=== PATIENT | male | born 1980 | race Caucasian/White ===

== ENCOUNTER 2022-05-14 12:17 | Outpatient (REF) | payer MEDICARE, SELFPAY ==
--- NOTE | ~2022-05-14 | CT_ITS ---
EXAMINATION: CT HEAD WITHOUT CONTRAST CLINICAL INFORMATION: REM sleep disorder. COMPARISON: None TECHNIQUE: Contiguous axial imaging was performed from the skull base to vertex without intravenous administration of contrast. This CT examination was performed using dose optimization techniques as appropriate, variously including the following: *Automated exposure control *Adjustment of mA and/or kV according to patient size (this includes techniques or standardized protocols for targeted exams where dose is matched to indication/reason for exam; i.e. extremities or head) *Use of iterative reconstruction technique DLP: 827 mGy-cm FINDINGS: There is no acute intra-axial, extra-axial bleed, masses or midline shift. There is no acute infarction evolution. No edema. The han to white matter differentiation is maintained. The lateral ventricles are symmetrical in size and configuration without enlargement. Bone windows reveal no calvarial abnormality. There is no scalp soft tissue abnormality. Bilateral paranasal sinuses and mastoid air cells are well aerated. CT/CT head/brain wo IV con IMPRESSION: No acute intracranial process seen.
== END 2022-05-14 12:18 | disposition home or self-care (01) ==
LOC: HO.CT 12:17
PROVIDERS: PCP Internal Medicine; Visit Provider Psychiatry & Neurology Neurology
DX: G47.52 REM sleep behavior disorder (principal)
CPT/HCPCS: 70450

== ENCOUNTER → 2022-11-03 13:04 | Outpatient (BNVA) | payer MEDICARE, SELFPAY | PROVIDERS: PCP Internal Medicine; Referring Provider Internal Medicine; Visit Provider Internal Medicine Cardiovascular Disease ==

== ENCOUNTER → 2022-11-17 12:43 | Outpatient (REF) | payer MEDICARE, SELFPAY ==
--- NOTE | 2022-11-17 12:50 | CA_ITS ---
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 Mildly dilated left ventricle with moderately reduced LV systolic function with LVEF of 35-40% with grade 1 diastolic dysfunction 2. Normal cardiac valvular Doppler 3. No gross pericardial effusion Findings Procedure Information Contrast agent, definity, is being given per protocol without apparent complications. Left Ventricle Mildly increased left ventricular cavity size. There is normal left ventricular wall thickness. The left ventricular systolic function is moderately decreased. The visually estimated ejection fraction is between 35 40%. Spectral Doppler is indicative of an impaired relaxation filling pattern. E/E prime ratio is <8, consistent with normal filling pressures. Evidence suggests grade I (mild) diastolic dysfunction. Right Ventricle Normal right ventricular cavity size and systolic function. Atria The left atrium is normal in size. Interatrial shunt cannot be excluded. The right atrium is normal in size. Aortic Valve The aortic valve structure and function is likely normal. There is no aortic valve stenosis. There is no aortic valve regurgitation. Mitral Valve Normal mitral valve structure and function. There is trace mitral valve regurgitation. There is no mitral valve stenosis. Pulmonic Valve The pulmonic valve was not well visualized. Tricuspid Valve Likely normal tricuspid valve structure and function. Tricuspid regurgitation envelope is inadequate for calculation of right ventricular systolic pressure. Normal right atrial pressure. Great Vessels All visible segments of the aorta are normal in size. The pulmonary artery was not well visualized. Venous The inferior vena cava is normal in size and collapses greater than 50% with inspiration. Pericardium/Pleural There is no evidence of pericardial effusion. Prior Study Comparison No prior study available for comparison. Measurements 2D Linear Measurements IVSd: 0.98 0.6-0.9/0.6-1.0 cm LVIDd: 6.17 3.9-5.3/4.2-5.9 cm LVIDd Index: 2.77 2.4-3.2/2.2-3.1 cm/m2 LVIDs: 5.26 2.0-3.6 cm LVPWd: 1.01 0.7-1.1 cm LA Diam: 3.30 2.7-3.8/3.0-4.0 cm LAIDs Index: 1.48 1.5-2.3 cm/m2 LV Mass: 320.17 67-162/88-224 g LV Mass Index: 143.57 43-95/49-115 g/m2 LVOT Diam: 2.30 3.0+(-)1.3 cm 2D Systolic Function EF 4C: 34.30 >55% EF 2C: 34.10 >55% EF BiP: 36.20 >55% Mitral Valve MV Pk E: 0.57 MV PK A: 0.61 MV Decel Time: 156.00 E/A: 0.90 E'Lateral: 8.38 E'Medial: 6.74 E/E' Med: 8.50 E/E' Lat: 6.80 PHT: 46.00 MVA PHT: 4.78 Decel [place]: 3.66 Aortic Valve AoV Pk Mode: 1.06 AoV Mn Mode: 0.79 AoV VTI: 0.21 AoV Pk Grad: 4.00 Aov Mn Grad: 3.00 IVANA Cont.VTI: 2.11 LVOT LVOT Pk Mode: 0.57 LVOT Mn Mode: 0.42 LVOT VTI: 0.10 LVOT Pk Grad: 1.00 LVOT Mn Grad: 1.00 LVOT Diam: 2.30 LVOT Area: 4.15 Diastolic Function MV Pk E: 0.57 MV Pk A: 0.61 E/A: 0.90 E'Medial: 6.74 E/E' Med: 8.50 E' Laterial: 8.38 E/E' Lat: 6.80 Right Ventricle TAPSE (mm): 18.80 TVS' Mode: 11.10 Tricuspid Valve RA Press: 3.00 Great Vessels Aorta Sinus of Valsalva: 3.49 2.0-3.[address] [place]: 2.78 1.7-3.4 cm Ao Asc: 3.10 2.1-3.4 cm Ao Arch: 3.00 Updated in Other Vendor System with Status of Final Hadley Guallpa MD electronically signed on 11/17/2022 2:52:14 PM with status of Final
[2022-11-17 13:50] LABS: Anion Gap 11 (12-20); Blood Urea Nitrogen 10 mg/dL (9-16); Calcium 9.7 mg/dL (8.4-10.2); Carbon Dioxide 29 mmol/L (22-29); Chloride 102 mmol/L (96-108); Estimated Glomerular Filt Rate > 60; Glucose Random 174 mg/dL (60-115); Potassium 4.3 mmol/L (3.3-5.1); Sodium 138 mmol/L (135-145)
[2022-11-17 13:55] LABS: B Type Natriuretic Peptide < 10 pg/mL (<100)
== END ==
LOC: HO.CARD 12:43
PROVIDERS: PCP Internal Medicine; Visit Provider Internal Medicine Cardiovascular Disease
DX: I42.8 Other cardiomyopathies (principal)
CPT/HCPCS: 36415; 80048; 83880; 93306; Q9957

== ENCOUNTER 2022-11-30 10:14 | Outpatient (REF) | payer MEDICARE, SELFPAY ==
--- NOTE | ~2022-11-30 | XR_ITS ---
EXAMINATION: XR SHOULDER, RIGHT CLINICAL INFORMATION: Pain. COMPARISON: None available. TECHNIQUE: AP external rotation, Grashey and axillary views of the right shoulder are submitted. FINDINGS: Bony alignment and mineralization are normal. The glenohumeral joint is intact. There is a tiny accessory ossification center seen at the inferior margin of the glenoid. The acromioclavicular and coracoclavicular intervals are normal. No fracture or dislocation is seen. No soft tissue calcifications or foreign body is seen. There is no right pneumothorax. XR/XR shoulder LT min 2V IMPRESSION: Normal right shoulder. EXAMINATION: XR SHOULDER, LEFT CLINICAL INFORMATION: Pain. COMPARISON: None available. TECHNIQUE: AP external rotation, Grashey and axillary views of the left shoulder are submitted. FINDINGS: The bones and soft tissues are normal. No fracture. Glenohumeral and acromioclavicular alignment is anatomic with normal joint space. No abnormal soft tissue calcifications. IMPRESSION: Normal left shoulder.
--- NOTE | ~2022-11-30 | XR_ITS ---
EXAMINATION: XR SHOULDER, RIGHT CLINICAL INFORMATION: Pain. COMPARISON: None available. TECHNIQUE: AP external rotation, Grashey and axillary views of the right shoulder are submitted. FINDINGS: Bony alignment and mineralization are normal. The glenohumeral joint is intact. There is a tiny accessory ossification center seen at the inferior margin of the glenoid. The acromioclavicular and coracoclavicular intervals are normal. No fracture or dislocation is seen. No soft tissue calcifications or foreign body is seen. There is no right pneumothorax. XR/XR shoulder RT min 2V IMPRESSION: Normal right shoulder. EXAMINATION: XR SHOULDER, LEFT CLINICAL INFORMATION: Pain. COMPARISON: None available. TECHNIQUE: AP external rotation, Grashey and axillary views of the left shoulder are submitted. FINDINGS: The bones and soft tissues are normal. No fracture. Glenohumeral and acromioclavicular alignment is anatomic with normal joint space. No abnormal soft tissue calcifications. IMPRESSION: Normal left shoulder.
== END 2022-11-30 10:15 | disposition home or self-care (01) ==
LOC: HO.HOSX 10:14
PROVIDERS: Visit Provider Physician Assistant
DX: M75.101 Unspecified rotator cuff tear or rupture of right shoulder, not specified as traumatic (principal); M75.102 Unspecified rotator cuff tear or rupture of left shoulder, not specified as traumatic
CPT/HCPCS: 20610; 73030; 99202; J1020

== ENCOUNTER → 2022-12-21 10:45 | Outpatient (BNVA) | payer MEDICARE, MEDICAID, SELFPAY | PROVIDERS: PCP Internal Medicine; Referring Provider Internal Medicine; Visit Provider Surgery | DX: K60.2 Anal fissure, unspecified (principal) | CPT/HCPCS: 99202 ==

== ENCOUNTER → 2022-12-22 09:12 | Outpatient (BNVA) | payer MEDICARE, MEDICAID, SELFPAY | PROVIDERS: PCP Internal Medicine; Referring Provider Internal Medicine; Visit Provider Internal Medicine Cardiovascular Disease | DX: I42.8 Other cardiomyopathies (principal) | CPT/HCPCS: 99212 ==

== ENCOUNTER → 2023-02-23 08:27 | Outpatient (BNVA) | payer MEDICARE, MEDICAID, SELFPAY | PROVIDERS: PCP Internal Medicine; Visit Provider Internal Medicine Endocrinology, Diabetes & Metabolism | DX: E11.9 Type 2 diabetes mellitus without complications (principal); Z79.84 Long term (current) use of oral hypoglycemic drugs | CPT/HCPCS: 82947; 83036; 99202 ==

== ENCOUNTER 2023-04-28 12:04 | Outpatient (AMB) | payer MEDICARE, MEDICAID, SELFPAY ==
[2023-04-28 12:22] VITALS: BP 119/70; PULSE 87; BMI 34.6
--- NOTE | 2023-04-28 12:22 | A.OFFVIS_ITS ---
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 Required: No Accompanied by: Self / Same As Patient Allergies acetaminophen [From Vicodin] Allergy (Unknown, Verified 04/28/23 12:24) Nightmares buprenorphine [From Suboxone] Allergy (Unknown, Verified 04/28/23 12:24) Vomiting cephalexin Allergy (Unknown, Verified 04/28/23 12:24) Vomiting escitalopram [From Lexapro] Allergy (Unknown, Verified 04/28/23 12:24) headaches hydrocodone [From Vicodin] Allergy (Unknown, Verified 04/28/23 12:24) Nightmares ketorolac [From Toradol] Allergy (Unknown, Verified 04/28/23 12:24) Vomiting metformin Allergy (Unknown, Verified 04/28/23 12:24) GI Problems naloxone [From Suboxone] Allergy (Unknown, Verified 04/28/23 12:24) Vomiting pregabalin [From Lyrica] Allergy (Unknown, Verified 04/28/23 12:24) Anxiety shrimp Allergy (Unknown, Verified 04/28/23 12:24) Anaphylaxis tramadol Allergy (Unknown, Verified 04/28/23 12:24) Anxiety Chantix Allergy (Mild, Uncoded 04/28/23 12:24) Anxiety Gabapentin Allergy (Mild, Uncoded 04/28/23 12:24) Anxiety Morphine Allergy (Mild, Uncoded 04/28/23 12:24) Anxiety Neurontin Allergy (Mild, Uncoded 04/28/23 12:24) Anxiety heavy metals Allergy (Unknown, Uncoded 04/28/23 12:24) Rash Medication List - Last Reconciled 04/28/23 by Saima Lewis PA-C blood sugar diagnostic (Accu-Chek Guide test strips) As directed blood-glucose meter (Accu-Chek Guide Me Glucose Meter) As directed carvedilol (Coreg) 12.5 mg PO BID clonazepam 1 mg PO BEDTIME lancets (FreeStyle Lancets) As directed levothyroxine 224 mcg PO DAILY linagliptin (Tradjenta) 5 mg PO QAM metformin 1,000 mg PO BID oxycodone-acetaminophen 10-325 mg 1 tab PO Q6H PRN sacubitril-valsartan 97-103 mg (Entresto) 1 tab PO BID spironolactone 25 mg PO DAILY zolpidem 5 mg PO TID PRN HPI HPI Comments History of Present Illness Details A 42 y/o male acid reflux- omeprazole, Nexium,- for years - no relief Hx colon polyps- just got letter saying due-for colonoscopy last [address] Bee-which time he had anal fissure as well c/o worsening acid reflux Smokes 1/2- 1 pk-he has gained weight Periumbilical pain before BM- resolves immediately after BM He has no nausea, vomiting, hematemesis, hematochezia fever or chills PFSH Medical History Nonischemic cardiomyopathy Type 2 diabetes mellitus Surgical History H/O nephrolithotomy with removal of calculi History of adenoidectomy History of carpal tunnel release History of colonoscopy History of surgery Hx of thyroidectomy Hx of vasectomy S/P cervical disc replacement Family History Father CAD (coronary artery disease) Mother No problems noted. 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 Review of Systems Const All systems reviewed & are unremarkable except as noted in HPI and below Card Denies chest pain and Denies dyspnea Resp Denies dyspnea GI Denies abdominal pain, Reports heartburn, Denies nausea and Denies vomiting Physical Exam Vital Signs: Last Vital Signs Pulse 87 04/28/23 12:22 BP 119/70 04/28/23 12:22 BMI result Body Mass Index 34.6 Const General: healthy appearing and comfortable Nutritional Appearance: overweight Orientation/consciousness: patient oriented x3 Limitations: no limitations Eyes Sclerae: sclerae normal Resp Effort & Inspection: normal respiratory effort and able to speak in complete sentences Auscultation: clear to auscultation bilaterally Cardio Rate: regular rate Rhythm: regular rhythm Heart sounds: S1 normal heart sound present and S2 normal heart sound present GI Palpation (GI): Soft to palpation and nontender Auscultation: normal bowel sounds Skin General skin exam: no rashes or lesions noted Neuro General: patient oriented x3 Extrem General: Yes full ROM Psych Appearance: well kempt Speech and movement: Clear speech present Affect: Indifferent affect present Thought content: Normal thought content present Assessment & Plan Assessment & Plan (1) Acid reflux: Comment: Trials of PPI, however culprits likely cause tobacco and overweight Somewhat guarded Code(s): K21.9 - Gastro-esophageal reflux disease without esophagitis Plan: Avoid culprits Omeprazole 40 mg (2) History of adenomatous polyp of colon: Code(s): Z86.010 - Personal history of colonic polyps Plan: Polyp surveillance colonoscopy Plan EGD and polyp surveillance colonoscopy 1/2 dose insulin theron before- omit metformin-Day of procedures- NO DM meds before MG split prep Orders: Orders EGD/[place] Combo - GI Use Only Today K21.9 - Gastro-esophageal reflux disease without esophagitis, Z86.010 - Personal history of colonic polyps Medications: New bisacodyl (Dulcolax (bisacodyl)) Take 4 tablets by mouth at 12:00pm the day before your procedure. 20 mg (4 x 5 mg) PO ONCE 1 day 4 tabs 0RF colonoscopy prep Z12.11 - Encounter for screening for malignant neoplasm of colon polyethylene glycol 3350 (Miralax) Take as directed by mouth the day before your procedure. 238 grams PO ONCE 1 day PRN 238 grams 0RF laxative effect omeprazole 40 mg (2 x 20 mg) PO DAILY 30 caps 5RF Patient Instructions: 42-year-old male personal history colon polyps as well as persistent acid reflux Discuss lifestyle and dietary changes to include tobacco smoking Polyp surveillance colonoscopy MiraLax Gatorade split prep EGD r/o pud, esophagitis other endoscopic findings to account for symptoms Discussed procedures, rare risks, need for escorted due to anesthesia Encouraged to call questions or concerns Coding Level of Care Code New Pt Level 4 (01298) Diagnoses Acid reflux K21.9 History of adenomatous polyp of colon Z86.010 Time Spent (min) 35
== END 2023-04-28 15:22 | disposition home or self-care (01) ==
PROVIDERS: PCP Internal Medicine; Visit Provider Physician Assistant
DX: K21.9 Gastro-esophageal reflux disease without esophagitis (principal); Z86.010 Personal history of colon polyps
CPT/HCPCS: 99204

== ENCOUNTER → 2023-04-28 12:04 | Outpatient (BNVA) | payer MEDICARE, MEDICAID, SELFPAY | PROVIDERS: PCP Internal Medicine; Visit Provider Physician Assistant | DX: K21.9 Gastro-esophageal reflux disease without esophagitis (principal); Z86.010 Personal history of colon polyps | CPT/HCPCS: 99202 ==

== ENCOUNTER 2023-06-28 09:31 | Outpatient (AMB) | payer MEDICARE, MEDICAID, SELFPAY ==
[2023-06-28 09:35] VITALS: BP 110/66; PULSE 95; BMI 34.8
--- NOTE | 2023-06-28 09:35 | A.OFFVIS_ITS ---
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: No Allergies acetaminophen [From Vicodin] Allergy (Unknown, Verified 04/28/23 12:24) Nightmares buprenorphine [From Suboxone] Allergy (Unknown, Verified 04/28/23 12:24) Vomiting cephalexin Allergy (Unknown, Verified 04/28/23 12:24) Vomiting escitalopram [From Lexapro] Allergy (Unknown, Verified 04/28/23 12:24) headaches hydrocodone [From Vicodin] Allergy (Unknown, Verified 04/28/23 12:24) Nightmares ketorolac [From Toradol] Allergy (Unknown, Verified 04/28/23 12:24) Vomiting metformin Allergy (Unknown, Verified 04/28/23 12:24) GI Problems naloxone [From Suboxone] Allergy (Unknown, Verified 04/28/23 12:24) Vomiting pregabalin [From Lyrica] Allergy (Unknown, Verified 04/28/23 12:24) Anxiety shrimp Allergy (Unknown, Verified 04/28/23 12:24) Anaphylaxis tramadol Allergy (Unknown, Verified 04/28/23 12:24) Anxiety Chantix Allergy (Mild, Uncoded 04/28/23 12:24) Anxiety Gabapentin Allergy (Mild, Uncoded 04/28/23 12:24) Anxiety Morphine Allergy (Mild, Uncoded 04/28/23 12:24) Anxiety Neurontin Allergy (Mild, Uncoded 04/28/23 12:24) Anxiety heavy metals Allergy (Unknown, Uncoded 04/28/23 12:24) Rash Medication List - Last Reconciled 06/28/23 by Hadley Guallpa MD blood sugar diagnostic (Accu-Chek Guide test strips) As directed blood-glucose meter (Accu-Chek Guide Me Glucose Meter) As directed carvedilol (Coreg) 12.5 mg PO BID clonazepam 1 mg PO BEDTIME lancets (FreeStyle Lancets) As directed levothyroxine 112 mcg PO DAILY linagliptin (Tradjenta) 5 mg PO QAM metformin 1,000 mg PO BID omeprazole 40 mg (2 x 20 mg) PO DAILY oxycodone-acetaminophen 10-325 mg 1 tab PO Q6H PRN sacubitril-valsartan 97-103 mg (Entresto) 1 tab PO BID spironolactone 25 mg PO DAILY zolpidem 5 mg PO TID PRN HPI HPI Comments History of Present Illness Details Martín comes for follow-up. No heart failure symptoms. Denies any lightheadedness, syncope. No worsening shortness of breath. He complains of burning discomfort in the legs precordial area that happens at any time and last for 1-5 minutes. This is not exertional in nature. Denies any prolonged palpitation irregular heartbeat. Taking all his medications religiously. Has about 800 mg of caffeine every day, he said this his needed for his job. [facility] Medical History Type 2 diabetes mellitus Nonischemic cardiomyopathy Surgical History History of colonoscopy Hx of vasectomy History of surgery History of adenoidectomy History of carpal tunnel release Hx of thyroidectomy S/P cervical disc replacement H/O nephrolithotomy with removal of calculi Family History Father CAD (coronary artery disease) Mother No problems noted. 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 Review of Systems Const Denies chills, Denies fatigue, Denies fever(s), Denies frequent falls, Denies weakness, Denies weight gain and Denies weight loss ENT Denies dizziness Card Denies chest pain, Denies leg edema, Denies lightheadedness, Denies palpitations, Denies dyspnea, Denies dyspnea on exertion, Denies orthopnea and Denies other (loss of consciousness) Resp Denies cough, Denies dyspnea and Denies dyspnea on exertion GI Denies hematochezia and Denies change in stool character Musc Denies abnormal gait, Denies muscle weakness, Denies numbness, Denies radiating pain into limb and Denies tingling Neuro Denies abnormal gait, Denies dizziness, Denies frequent falls, Denies numbness, Denies tingling and Denies weakness Endo Denies fatigue and Denies palpitations Physical Exam Vital Signs: Last Vital Signs Pulse 95 06/28/23 09:35 BP 110/66 06/28/23 09:35 BMI result Body Mass Index 34.8 Const General: cooperative, comfortable, no acute distress, alert, awake and Physically active Nutritional Appearance: obese Orientation/consciousness: patient oriented x3 Limitations: no limitations Neck Neck: Yes trachea midline, Yes supple and Yes no JVD Resp Effort & Inspection: normal respiratory effort Auscultation: clear to auscultation bilaterally Cardio Jugular venous distension: no JVD Palpation: abnormal PMI displaced PMI Rate: regular rate Rhythm: regular rhythm Heart sounds: S1 normal heart sound present, S2 normal heart sound present, no click, no gallops, no murmurs and no rubs Neuro General: patient oriented x3 and no focal motor deficits Extrem General: Yes no clubbing, cyanosis or edema Psych Appearance: grossly normal Office Procedures EKG Details: EKG shows normal sinus rhythm with poor R-wave progression, most likely due to body habitus [id number], Complete Assessment & Plan Assessment & Plan (1) Nonischemic cardiomyopathy: Code(s): I42.8 - Other cardiomyopathies Plan: Nonischemic cardiomyopathy with moderate LV systolic dysfunction without signs or symptoms of heart failure. NYHA class 1. Continue aggressive neurohormonal modulation. Currently on full dose Entresto. Will further maximize carvedilol to 25 mg b.i.d.. Advised to monitor blood pressure at home maintain a log. Try to obtain target heart rate between 60 and 80 beats per minute. Continue spironolactone therapy. Semi annual renal function test should be pursued. Signs and symptoms of heart failure were discussed. Continue to maximize is heart healthy lifestyle with aggressive weight loss program as well as regular physical activity. Will follow up in the clinic 6 months time after an echocardiogram. Thank you for allowing me to partake in his care Orders: Orders CA echo transthoracic complete 6 Months I42.8 - Other cardiomyopathies Medications: New carvedilol (Coreg) must administer with a meal/food 25 mg PO BID 60 tabs 5RF I42.8 - Other cardiomyopathies Discontinued carvedilol (Coreg) must administer with a meal/food Discontinued Reason: Doctor's Order 12.5 mg PO BID 60 tabs 5RF I42.8 - Other cardiomyopathies Coding Level of Care Code Est Pt Level 4 (67555) Diagnoses Nonischemic cardiomyopathy I42.8 CPT Codes EKG - CPT: 83132-[id number], Complete ([id number])
== END 2023-06-28 10:04 | disposition home or self-care (01) ==
PROVIDERS: Visit Provider Internal Medicine Cardiovascular Disease
DX: I42.8 Other cardiomyopathies (principal)
CPT/HCPCS: 93010; 99214

== ENCOUNTER → 2023-06-28 09:31 | Outpatient (BNVA) | payer MEDICARE, SELFPAY | PROVIDERS: Visit Provider Internal Medicine Cardiovascular Disease | DX: I42.8 Other cardiomyopathies (principal) | CPT/HCPCS: 93005; 99212 ==

== ENCOUNTER 2023-07-12 08:59 | Outpatient (AMB) | payer MEDICARE, MEDICAID, SELFPAY ==
[2023-07-12 09:03] VITALS: BMI 34.7
--- NOTE | 2023-07-12 09:03 | A.OFFVIS_ITS ---
Intake Vital Signs 07/12/23 09:03 Height 5 ft 9 in Weight 235 lb BMI 34.7 Intake Visit Reasons: New Prob- B/L Elbow pain Intake Note: Martín is a 42 year old right hand dominant male who presents today for a evaluation for his bilateral elbow pain. Patient reports having off and on pain for 3 years and it been getting worse. Hx of injection with a couple months of relief. Hx of PT with no relief. He states that his right elbow is worse that the left. Allergies acetaminophen [From Vicodin] Allergy (Unknown, Verified 07/12/23 09:04) Nightmares buprenorphine [From Suboxone] Allergy (Unknown, Verified 07/12/23 09:04) Vomiting cephalexin Allergy (Unknown, Verified 07/12/23 09:04) Vomiting escitalopram [From Lexapro] Allergy (Unknown, Verified 07/12/23 09:04) headaches hydrocodone [From Vicodin] Allergy (Unknown, Verified 07/12/23 09:04) Nightmares ketorolac [From Toradol] Allergy (Unknown, Verified 07/12/23 09:04) Vomiting metformin Allergy (Unknown, Verified 07/12/23 09:04) GI Problems naloxone [From Suboxone] Allergy (Unknown, Verified 07/12/23 09:04) Vomiting pregabalin [From Lyrica] Allergy (Unknown, Verified 07/12/23 09:04) Anxiety shrimp Allergy (Unknown, Verified 07/12/23 09:04) Anaphylaxis tramadol Allergy (Unknown, Verified 07/12/23 09:04) Anxiety Chantix Allergy (Mild, Uncoded 04/28/23 12:24) Anxiety Gabapentin Allergy (Mild, Uncoded 04/28/23 12:24) Anxiety Morphine Allergy (Mild, Uncoded 04/28/23 12:24) Anxiety Neurontin Allergy (Mild, Uncoded 04/28/23 12:24) Anxiety heavy metals Allergy (Unknown, Uncoded 04/28/23 12:24) Rash HPI New Prob- B/L Elbow pain HPI Details 43-year-old right hand dominant male who presents in the office today for an evaluation of bilateral elbow pain. The patient reports intermittent pain for 3 years, since 2019. He states the pain has increased. He claims the right elbow is worse then the left elbow. He confirms a history of cortisone injections with months of relief. He also confirms a history of physical therapy with no relief. The patient reports he has had more then 5 cortisone injections in the bilateral elbows. He denies any PRP injections. He also reports having 5 ?disc repl acement? surgery in the neck. FOR[facility]LY [facility] Medical History Type 2 diabetes mellitus Nonischemic cardiomyopathy Surgical History History of colonoscopy Hx of vasectomy History of surgery History of adenoidectomy History of carpal tunnel release Hx of thyroidectomy S/P cervical disc replacement H/O nephrolithotomy with removal of calculi Family History Father CAD (coronary artery disease) Mother No problems noted. 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 No ecchymosis, erythema, or edema. No tenderness to palpation over the olecranon. No tenderness to the lateral epicondyle. Right elbow tenderness to palpation medial epicondyle and left elbow mild tenderness to palpation medial epicondyle. NVI. Office Procedures Joint Injection/Drain Joint Injection/Drain Primary Site: right tennis elbow Prep: site was prepped using aseptic technique, ethochloride spray was applied and injection warnings given Injected: 40 mg of, DepoMedrol, with 1 mL of (2% plain lido ) and other (medial epicondyle) Procedure: The patient tolerated the procedure well, but had some pain with the injection and there was some relief with the local anesthesia Coding 53531 - Epicondyle Procedure code (CPT) selection complete Results Reviewed Results Reviewed: 07/12/23 09:16 Lidocaine HCl 1 % [Xylocaine 1 %] 2 ml .ROUTE .STK-MED ONE methylPREDNISolone acetate [DEPO-MedroL] 40 mg .ROUTE .STK-MED ONE Assessment & Plan Assessment & Plan (1) Medial epicondylitis of right elbow: Code(s): M77.01 - Medial epicondylitis, right elbow (2) Medial epicondylitis of left elbow: Code(s): M77.02 - Medial epicondylitis, left elbow (3) Diabetes mellitus: Code(s): E11.9 - Type 2 diabetes mellitus without complications Plan Mr. Del Valle is a 43-year-old right hand dominant male who presents in the office today for an evaluation of bilateral elbow pain. The patient reports intermittent pain for 3 years, since 2019. He states the pain has increased. He claims the right elbow is worse then the left elbow. He confirms a history of cortisone injections with months of relief. He also confirms a history of physical therapy with no relief. The patient reports he has had more then 5 cortisone injections in the bilateral elbows. He denies any PRP injections. He also reports having 5 ?disc replacement? surgery in the neck. The patient was offered a cortisone injection in the right elbow with 40 mg of DepoMedrol. The patient was explained the risk, benefits, and alternatives to receiving this injection. After receiving consent for the injection, the patient had the procedure done while in office today. The patient tolerated the procedure well with no complications. Due to the patient?s history of diabetes, they were instructed to monitor his blood glucose level. The patient was informed that they could see a rise in their numbers and if the numbers became too high, they were instructed to call their PCP. The patient was also informed that they could have facial flushing as a side effect of the injection but this will pass. Follow up will be PRN, or sooner if needed. Patient Instructions: Scribed for Kelly Davidson PA-C by Sivan Espinoza medical staffing coordinator, on 07/12/2023 at 9:02 am, EST. Coding Level of Care Code Est Pt Level 4 (49222) Diagnoses Medial epicondylitis of right elbow M77.01 Medial epicondylitis of left elbow M77.02 Diabetes mellitus E11.9 CPT Codes Coding - Joint 2: 56729 - Epicondyle ([id number])
== END 2023-07-12 09:47 | disposition home or self-care (01) ==
PROVIDERS: PCP Internal Medicine; Visit Provider Physician Assistant
DX: M77.01 Medial epicondylitis, right elbow (principal); M77.02 Medial epicondylitis, left elbow
CPT/HCPCS: 20550; 99214

== ENCOUNTER → 2023-07-12 08:59 | Outpatient (BNVA) | payer MEDICARE, MEDICAID, SELFPAY | PROVIDERS: PCP Internal Medicine; Visit Provider Physician Assistant | DX: M77.01 Medial epicondylitis, right elbow (principal); M77.02 Medial epicondylitis, left elbow; E11.9 Type 2 diabetes mellitus without complications | CPT/HCPCS: 20550; 99212; J1020 ==

== ENCOUNTER 2023-08-09 09:40 | Outpatient (REF) | payer MEDICARE, SELFPAY ==
[2023-08-09 12:10] LABS: B Type Natriuretic Peptide < 10 pg/mL (<100)
[2023-08-09 12:20] LABS: Anion Gap 10 (12-20); Blood Urea Nitrogen 14 mg/dL (9-16); Calcium 9.1 mg/dL (8.4-10.2); Carbon Dioxide 27 mmol/L (22-29); Chloride 105 mmol/L (96-108); Estimated Glomerular Filt Rate > 60; Glucose Random 143 mg/dL (60-115); Potassium 4.3 mmol/L (3.3-5.1); Sodium 138 mmol/L (135-145)
[2023-08-09 12:39] LABS: TSH reflex Free T4 29.39 uIU/mL (0.32-4.0)
[2023-08-09 13:12] LABS: Free T4 (Free Thyroxine) 0.69 ng/dL (0.71-1.85)
== END 2023-08-09 09:41 | disposition home or self-care (01) ==
LOC: HO.LAB 09:40
PROVIDERS: PCP Internal Medicine; Visit Provider Internal Medicine Cardiovascular Disease
DX: I42.8 Other cardiomyopathies (principal); R63.5 Abnormal weight gain
CPT/HCPCS: 36415; 80048; 83880; 84439; 84443

== ENCOUNTER 2023-10-11 08:31 | Outpatient (REF) | payer MEDICARE, SELFPAY | END 2023-10-11 08:32 | disposition home or self-care (01) | LOC: HO.HOSX 08:31 | PROVIDERS: Visit Provider Physician Assistant | DX: Z13.89 Encounter for screening for other disorder (principal) ==

== ENCOUNTER 2023-10-24 08:14 | Day surgery (SDC) | payer MEDICARE, SELFPAY ==
--- NOTE | 2023-10-21 11:46 | HO.ANESPROP2 ---
Documented by User: Columba Mills NP 10/21/23 11:55 HPI - Anesthesia Eval Consult details Narrative: 43yo M for Upper Endoscopy and Colonoscopy Follows [facility] cardiology for NICMP. Last office visit 05/2023. On entresto. Anesthesia Pre-Procedure Meds Is the patient on any of the following meds?: Any other SGL-1 drugs or drugs that delay gastric emptying (Linigliptin) PMFSH Active Problems Active Problems: All Active Problems (Updated 07/12/23 @ 09:27 by Sivan Espinoza) Diabetes mellitus (Acute) Medial epicondylitis of left elbow (Acute) Medial epicondylitis of right elbow (Acute) History of adenomatous polyp of colon (Acute) Acid reflux (Acute) Type 2 diabetes mellitus (Acute) Anal fissure (Acute) Painful arc syndrome of left shoulder (Acute) Painful arc syndrome of right shoulder (Acute) Nonischemic cardiomyopathy (Acute) Past Medical History Medical History Type 2 diabetes mellitus Nonischemic cardiomyopathy Family History Family History Father CAD (coronary artery disease) Mother No problems noted. Maternal Aunt CAD (coronary artery disease) Surgical History Surgical History History of colonoscopy Hx of vasectomy History of surgery History of adenoidectomy History of carpal tunnel release Hx of thyroidectomy S/P cervical disc replacement H/O nephrolithotomy with removal of calculi Social History Social History Alcohol intake: current Alcohol intake frequency: holidays/special occasions only Patient Tobacco Use Status: Current everyday Tobacco user Tobacco use type: Cigarette Cigarette Packs Per Day: 1 Date Education Initiated: 10/24/23 Use of substances other than those prescribed or required for medical reasons: No Are you DNR?: No Advance Directives: No Advance Directives Information Provided: Yes Current occupational status: employed 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 Allergies Allergy/AdvReac Type Severity Reaction Status Date / Time acetaminophen [From Vicodin] Allergy Unknown Nightmares Verified 07/12/23 09:04 buprenorphine [From Suboxone] Allergy Unknown Vomiting Verified 07/12/23 09:04 cephalexin Allergy Unknown Vomiting Verified 07/12/23 09:04 escitalopram [From Lexapro] Allergy Unknown headaches Verified 07/12/23 09:04 hydrocodone [From Vicodin] Allergy Unknown Nightmares Verified 07/12/23 09:04 ketorolac [From Toradol] Allergy Unknown Vomiting Verified 07/12/23 09:04 metformin Allergy Unknown GI Problems Verified 07/12/23 09:04 naloxone [From Suboxone] Allergy Unknown Vomiting Verified 07/12/23 09:04 pregabalin [From Lyrica] Allergy Unknown Anxiety Verified 07/12/23 09:04 shrimp Allergy Unknown Anaphylaxis Verified 07/12/23 09:04 tramadol Allergy Unknown Anxiety Verified 07/12/23 09:04 Chantix Allergy Mild Anxiety Uncoded 04/28/23 12:24 Gabapentin Allergy Mild Anxiety Uncoded 04/28/23 12:24 Morphine Allergy Mild Anxiety Uncoded 04/28/23 12:24 Neurontin Allergy Mild Anxiety Uncoded 04/28/23 12:24 heavy metals Allergy Unknown Rash Uncoded 04/28/23 12:24 Home Medications Medication Instructions Recorded Confirmed Last Taken Type oxycodone-acetaminophen 10 mg-325 1 tab PO Q6H PRN paain 11/03/22 10/24/23 Unknown History mg tablet zolpidem 5 mg tablet 5 mg PO TID PRN Insomnia 11/03/22 10/24/23 Unknown History metformin 1,000 mg tablet 1,000 mg PO BID 12/22/22 10/24/23 Unknown History blood sugar diagnostic (Accu-Chek #10 ea 02/23/23 Unknown History Guide test strips) blood-glucose meter (Accu-Chek #1 ea 02/23/23 Unknown History Guide Me Glucose Meter) lancets 28 gauge (FreeStyle #100 ea 02/23/23 Unknown History Lancets) levothyroxine 112 mcg tablet 112 mcg PO DAILY 06/28/23 10/24/23 Unknown History Exam Pertinent Lab Results Pertinent Lab Results: Laboratory Tests 08/09/23 09:55 Sodium 138 Potassium 4.3 Chloride 105 Carbon Dioxide 27 BUN 14 Creatinine 0.94 Narrative Narrative: EKG 05/2023 normal sinus rhythm with poor R-wave progression, most likely due to body habitus ECHO 2022 Conclusions: - 1. Mildly dilated left ventricle with moderately reduced LV systolic function with LVEF of 35-40% with grade 1 diastolic dysfunction 2. Normal cardiac valvular Doppler 3. No gross pericardial effusion Assessment and Plan Assessment Anesthesia Assessment: Chart Reviewed Documented by User: Gena Jewell MD 10/24/23 09:37 HPI - Anesthesia Eval Anesthesia Pre-Procedure Meds If Yes to any meds - educate patient: Pt education - increased risk of aspiration and Pt education - possibility of cancelled proc at provider's discretion PMFSH Past Medical History Medical History Type 2 diabetes mellitus Nonischemic cardiomyopathy Family History Family History Father CAD (coronary artery disease) Mother No problems noted. Maternal Aunt CAD (coronary artery disease) Family history of problems with anesthesia: No Surgical History Surgical History History of colonoscopy Hx of vasectomy History of surgery History of adenoidectomy History of carpal tunnel release Hx of thyroidectomy S/P cervical disc replacement H/O nephrolithotomy with removal of calculi History of Problems with Anesthesia: No Social History Social History Alcohol intake: current Alcohol intake frequency: holidays/special occasions only Patient Tobacco Use Status: Current everyday Tobacco user Tobacco use type: Cigarette Cigarette Packs Per Day: 1 Date Education Initiated: 10/24/23 Use of substances other than those prescribed or required for medical reasons: No Are you DNR?: No Advance Directives: No Advance Directives Information Provided: Yes Current occupational status: employed 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 Allergies Allergy/AdvReac Type Severity Reaction Status Date / Time acetaminophen [From Vicodin] Allergy Unknown Nightmares Verified 07/12/23 09:04 buprenorphine [From Suboxone] Allergy Unknown Vomiting Verified 07/12/23 09:04 cephalexin Allergy Unknown Vomiting Verified 07/12/23 09:04 escitalopram [From Lexapro] Allergy Unknown headaches Verified 07/12/23 09:04 hydrocodone [From Vicodin] Allergy Unknown Nightmares Verified 07/12/23 09:04 ketorolac [From Toradol] Allergy Unknown Vomiting Verified 07/12/23 09:04 metformin Allergy Unknown GI Problems Verified 07/12/23 09:04 naloxone [From Suboxone] Allergy Unknown Vomiting Verified 07/12/23 09:04 pregabalin [From Lyrica] Allergy Unknown Anxiety Verified 07/12/23 09:04 shrimp Allergy Unknown Anaphylaxis Verified 07/12/23 09:04 tramadol Allergy Unknown Anxiety Verified 07/12/23 09:04 Chantix Allergy Mild Anxiety Uncoded 04/28/23 12:24 Gabapentin Allergy Mild Anxiety Uncoded 04/28/23 12:24 Morphine Allergy Mild Anxiety Uncoded 04/28/23 12:24 Neurontin Allergy Mild Anxiety Uncoded 04/28/23 12:24 heavy metals Allergy Unknown Rash Uncoded 04/28/23 12:24 Home Medications Medication Instructions Recorded Confirmed Last Taken Type oxycodone-acetaminophen 10 mg-325 1 tab PO Q6H PRN paain 11/03/22 10/24/23 Unknown History mg tablet zolpidem 5 mg tablet 5 mg PO TID PRN Insomnia 11/03/22 10/24/23 Unknown History metformin 1,000 mg tablet 1,000 mg PO BID 12/22/22 10/24/23 Unknown History blood sugar diagnostic (Accu-Chek #10 ea 02/23/23 Unknown History Guide test strips) blood-glucose meter (Accu-Chek #1 ea 02/23/23 Unknown History Guide Me Glucose Meter) lancets 28 gauge (FreeStyle #100 02/23/23 Unknown History Lancets) levothyroxine 112 mcg tablet 112 mcg PO DAILY 06/28/23 10/24/23 Unknown History Exam Airway Mallampati Class: III TM Dist: >3cm Neck ROM: Full Heart: rrr Lungs: cta Assessment and Plan Assessment Anesthesia Assessment: Anesthesia Plan Discussed Final Anesthetic Review Family History of Problems with Anesthesia: No History of Problems with Anesthesia: No NPO: Yes ASA Class: III Final Preanesthetic Review: No Changes in Pt Med Stat, Meds/Allgs Chart Reviewed and Consent Obtained/Reviewed Patient Risk: Intermediate Procedure Risk: Intermediate Anesthetic Plan Anesthetic Plan: MAC: Disposition: Standard PACU
[2023-10-24 08:59] VITALS: BP 129/83; PULSE 95; RESP 18; TEMP 36.3; O2SAT 96; BMI 36.3
[2023-10-24 09:00] LABS: Glucose, Whole Blood 171 mg/dL (60-115)
[2023-10-24 09:08] VITALS: BMI 36.3
--- NOTE | 2023-10-24 09:21 | PC.NURSE ---
pt denies chest pain, sob, dizziness with activity of going up and down stairs with food. tele strip nsr first degree avb with occas to freq isolated pvc. dr. barraza aware.
[2023-10-24] MEDS: Lactated Ringers 1,000 ML 100 ML IVCONT (09:24)
--- NOTE | 2023-10-24 09:26 | MHC.SHP ---
Pre-Procedural Eval Section A - 24 Hr Update-Section A only Date of Service: 10/24/23 The patient is an INPATIENT: No The patient has been examined within 24 hours of the surgical procedure. The History & Physical has been completed within 30 days and I have reviewed it.: No Section B - Complete if H&P > 30 days Chief Complaint: Surveillance for colon polyps, GERD Relevant Family History (Specify if Yes): No Relevant Social History: Tobacco Use Present Medications: see Short Stay Collaborative assessment Medical History: Significant History (Nonischemic cardiomyopathy Type 2 diabetes mellitus) History of Previous Operations: Relevant previous surgery/procedure and date(s) (H/O nephrolithotomy with removal of calculi History of adenoidectomy History of carpal tunnel release History of colonoscopy History of surgery Hx of thyroidectomy Hx of vasectomy S/P cervical disc replacement) Allergies: Allergies Allergy/AdvReac Type Severity Reaction Status Date / Time acetaminophen [From Vicodin] Allergy Unknown Nightmares Verified 07/12/23 09:04 buprenorphine [From Suboxone] Allergy Unknown Vomiting Verified 07/12/23 09:04 cephalexin Allergy Unknown Vomiting Verified 07/12/23 09:04 escitalopram [From Lexapro] Allergy Unknown headaches Verified 07/12/23 09:04 hydrocodone [From Vicodin] Allergy Unknown Nightmares Verified 07/12/23 09:04 ketorolac [From Toradol] Allergy Unknown Vomiting Verified 07/12/23 09:04 metformin Allergy Unknown GI Problems Verified 07/12/23 09:04 naloxone [From Suboxone] Allergy Unknown Vomiting Verified 07/12/23 09:04 pregabalin [From Lyrica] Allergy Unknown Anxiety Verified 07/12/23 09:04 shrimp Allergy Unknown Anaphylaxis Verified 07/12/23 09:04 tramadol Allergy Unknown Anxiety Verified 07/12/23 09:04 Chantix Allergy Mild Anxiety Uncoded 04/28/23 12:24 Gabapentin Allergy Mild Anxiety Uncoded 04/28/23 12:24 Morphine Allergy Mild Anxiety Uncoded 04/28/23 12:24 Neurontin Allergy Mild Anxiety Uncoded 04/28/23 12:24 heavy metals Allergy Unknown Rash Uncoded 04/28/23 12:24 Review of Systems Sugical H&P ROS: Negative: Constitution, Cardiovascular, Respiratory and Gastrointestinal Exam Surgical H&P Exam: Normal: Heart, Normal: Lungs, Normal: Extremities and Normal: Abdomen Plan Diagnosis/Plan: Unchanged I have reviewed the history and physical and performed a pertinent physical examination on my patient. No changes have occurred unless specified. Time Spent With Patient Time: Total time managing care of this patient today ____ minutes.
--- NOTE | 2023-10-24 10:15 | W.PM.OPN ---
Operative Note Operative Note Date of Service: 10/24/23 Narrative: FLEXIBLE TRANSORAL UPPER GASTROINTESTINAL ENDOSCOPY WITH BIOPSIES AND COLONOSCOPY TILL CECUM WITH SNARE POLYPECTOMY, SUBMUCOSAL INJECTION AND HEMOCLIP PLACEMENT Pre-op diagnosis: Surveillance for colon polyps, GERD Post-op diagnosis: Gastric Polyps, GERD, Gastritis Multiple colon polyps, diverticulosis, hemorrhoids? Endoscopist:? Kenny Payne MD Anesthesia:?MAC Consent: Indications for the procedure and potential complications of bleeding, perforation, reaction to medications and missed diagnosis were discussed with the patient and informed consent was obtained. Monitoring: Vital signs and clinical assessment, intermittent blood pressure monitoring, continuous EKG monitoring, Pulse oximetry and Carbon Dioxide monitoring were done throughout the procedure. COLONOSCOPY PROCEDURE NOTE Instrument: Olympus CF H 190 L variable stiffness adult colonoscope Colon withdrawl time was 43 minutes. Procedure: The patient was placed in the left lateral decubitis position and pre-procedure medications were administered. After a digital rectal examination of the ano-rectum, the video colonoscope was inserted into the rectum and advanced through the colon to the cecum. The colonoscope was slowly withdrawn in a retrograde panoramic fashion and the colon mucosa was carefully examined including a retroflexed view of the rectum. Findings and interventions are described below. Procedure Difficulty: Without difficulty Findings: Terminal Ileum: Not evaluated Cecum: A 9-10 mm sessile polyp - removed with a hot snare Ascending Colon: Normal Transverse Colon: Six 8 to 12 mm sessile polyps - removed with a hot snare Descending Colon: Moderate diverticulosis Sigmoid Colon: A 1.5 to 1.8 cms sessile polyp at 40 cms - removed with a hot snare. Polypectomy site was closed with one hemoclip. A 2.5 cms bilobed pedunculated polyp - removed with a hot snare. Polypectomy site was closed with 2 hemoclips and marked by Shwetha ink. Moderate diverticulosis Rectum: Normal Ano-rectum: Moderate internal hemorrhoids Colon preparation: Good after copious irrigation and Fair in the cecum with undigested vegetable matter which could not be suctioned UPPER ENDOSCOPY Instrument: Olympus GIF H 190 mid size upper endoscope Procedure: The patient was placed in the left lateral decubitis position and pre-procedure medications were administered and a bite block was placed. The endoscope was inserted into the mouth and advanced under direct vision to the third part of duodenum. A careful inspection was made as the upper endoscope was withdrawn including a retroflexed examination of the proximal stomach; Findings and interventions are described below. Findings: Larynx: Normal Esophagus: GE junction at 40 cms. A 1 cms tongue of suspected May's - biopsied. LA grade 1 esophagitis with focal erosion at GE junction.. Stomach: Multiple 8 to 12 mm benign appearing polyps in the gastric body and antrum. Antral polyp was biopsied. Mild gastric erythema. Antral biopsies were obtained to check for Helicobacter pylori. Grade 2 flap valve on retroflexed examination of the cardia. Duodenum: Normal bulb and descending duodenum Intervention: Biopsies as noted above Impression and Post Procedure Diagnosis: Colonoscopy Findings: Seven small to medium sized and two large polyps removed Multiple 8 to 12 mm sessile polyps throughout the entire colon - not removed due to excessive length of the procedure Moderate diverticulosis seen in the left colon Moderate hemorrhoids on retroflexed exam. Endoscopy Findings: ESOPHAGUS: A 1 cms tongue of suspected May's - biopsied. LA grade 1 esophagitis with focal erosion at GE junction.. STOMACH: Multiple 8 to 12 mm benign appearing polyps in the gastric body and antrum. Antral polyp was biopsied. Mild gastric erythema. Antral biopsies were obtained to check for Helicobacter pylori. Plan: Patient has an appointment on 11/07/23 in the GI Clinic with PRINCE Weiss. Repeat Colonoscopy interval based on path results - in 6 months if polyps are adenomatous and for removal of remaining polyps (Needs 90 min appt and adult colonoscope for next colonoscopy). Above findings were reviewed with the patient and colon polyps and diverticulosis handouts were given in the discharge area BIOPSIES SHOWED: A. Colon, cecal polyp: Inflammatory polyp; negative for adenomatous dysplasia. B. Colon, transverse, polyps: Inflammatory polyps; negative for adenomatous dysplasia. C. Colon, sigmoid at 40 cm, polyp: Inflammatory polyp with reactive mucosal changes; negative for adenomatous dysplasia. D. Colon, sigmoid at 35 cm, polyp: Tubulovillous adenoma, likely excised; negative for high-grade dysplasia and carcinoma. E. Gastric antrum, biopsy: Gastric antral mucosa with congestion and minimal chronic inactive gastritis; negative for H pylori, intestinal metaplasia and dysplasia. F. Gastric polyp, biopsy: Polypoid gastric antral mucosa with congestion and focal minimal chronic inactive inflammation; negative for H pylori, intestinal metaplasia and dysplasia. G. Gastroesophageal junction, biopsy: Columnar mucosa with congestion and minimal chronic inactive inflammation; negative for intestinal metaplasia and dysplasia; no squamous mucosa present. Comment: (B and C): Focal lamina propria ganglion cells are noted, consistent with mucosal damage
[2023-10-24 11:40] VITALS: BP 125/93; PULSE 104; RESP 16; TEMP 36.3; O2SAT 97
[2023-10-24 11:55] VITALS: BP 115/78; PULSE 86; RESP 16; O2SAT 97
[2023-10-24 12:11] VITALS: BP 126/72; PULSE 93; RESP 18; TEMP 36.3; O2SAT 99
== END 2023-10-24 12:48 | disposition home or self-care (01) ==
PROVIDERS: PCP Internal Medicine; Visit Provider Internal Medicine Gastroenterology
PROC: (CPT 45385; principal; 2023-10-24 10:20)
DX: Z12.11 Encounter for screening for malignant neoplasm of colon (principal); Z86.010 Personal history of colon polyps; D12.5 Benign neoplasm of sigmoid colon; K51.40 Inflammatory polyps of colon without complications; K57.30 Diverticulosis of large intestine without perforation or abscess without bleeding; K64.8 Other hemorrhoids; K21.9 Gastro-esophageal reflux disease without esophagitis; K20.80 Other esophagitis without bleeding; K29.50 Unspecified chronic gastritis without bleeding; K31.7 Polyp of stomach and duodenum; I42.8 Other cardiomyopathies; E11.9 Type 2 diabetes mellitus without complications; Z88.8 Allergy status to other drugs, medicaments and biological substances; Z79.899 Other long term (current) drug therapy; Z79.84 Long term (current) use of oral hypoglycemic drugs; Z88.5 Allergy status to narcotic agent; Z87.442 Personal history of urinary calculi; Z98.52 Vasectomy status; Z98.890 Other specified postprocedural states; F17.210 Nicotine dependence, cigarettes, uncomplicated
CPT/HCPCS: 45385; 45381; 43239; 82947; 88305; 88313; 88342; J2250; J2704

== ENCOUNTER → 2023-10-24 08:14 | Outpatient (BNV) | payer MEDICARE, SELFPAY | PROVIDERS: PCP Internal Medicine; Visit Provider Internal Medicine Gastroenterology | DX: Z12.11 Encounter for screening for malignant neoplasm of colon (principal); Z86.010 Personal history of colon polyps; K63.5 Polyp of colon; K57.90 Diverticulosis of intestine, part unspecified, without perforation or abscess without bleeding; K21.9 Gastro-esophageal reflux disease without esophagitis; K31.7 Polyp of stomach and duodenum; K29.70 Gastritis, unspecified, without bleeding | CPT/HCPCS: 43239; 45381; 45385 ==

== ENCOUNTER 2023-12-06 11:11 | Outpatient (AMB) | payer OTHER, SELFPAY ==
--- NOTE | 2023-12-06 11:15 | A.OFFVIS_ITS ---
Intake Vital Signs 12/06/23 11:24 Height 5 ft 9 in Weight 244 lb BMI 36.0 BP 119/72 Blood Pressure Location Lt brachial Position Sitting Pulse 90 Intake Visit Reasons: s/p egd/colon Intake Note: Patient follow up for acid reflex, Colonoscopy and EGD results Patient cc: acid reflex with burning sensation, abdominal pain with medication and he have to ate a big meal to the pain stop and also constipation on and off. 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 Accompanied by: Self / Same As Patient Allergies acetaminophen [From Vicodin] Allergy (Unknown, Verified 12/06/23 11:19) Nightmares buprenorphine [From Suboxone] Allergy (Unknown, Verified 12/06/23 11:19) Vomiting cephalexin Allergy (Unknown, Verified 12/06/23 11:19) Vomiting escitalopram [From Lexapro] Allergy (Unknown, Verified 12/06/23 11:19) headaches hydrocodone [From Vicodin] Allergy (Unknown, Verified 12/06/23 11:19) Nightmares ketorolac [From Toradol] Allergy (Unknown, Verified 12/06/23 11:19) Vomiting metformin Allergy (Unknown, Verified 12/06/23 11:19) GI Problems naloxone [From Suboxone] Allergy (Unknown, Verified 12/06/23 11:19) Vomiting pregabalin [From Lyrica] Allergy (Unknown, Verified 12/06/23 11:19) Anxiety shrimp Allergy (Unknown, Verified 12/06/23 11:19) Anaphylaxis tramadol Allergy (Unknown, Verified 12/06/23 11:19) Anxiety Chantix Allergy (Mild, Uncoded 04/28/23 12:24) Anxiety Gabapentin Allergy (Mild, Uncoded 04/28/23 12:24) Anxiety Morphine Allergy (Mild, Uncoded 04/28/23 12:24) Anxiety Neurontin Allergy (Mild, Uncoded 04/28/23 12:24) Anxiety heavy metals Allergy (Unknown, Uncoded 04/28/23 12:24) Rash Medication List - Last Reconciled 12/06/23 by Saima Lewis PA-C blood sugar diagnostic (Accu-Chek Guide test strips) As directed blood-glucose meter (Accu-Chek Guide Me Glucose Meter) As directed carvedilol (Coreg) 25 mg PO BID lancets (FreeStyle Lancets) As directed levothyroxine 112 mcg PO DAILY metformin 1,000 mg PO BID oxycodone-acetaminophen 10-325 mg 1 tab PO Q6H PRN pantoprazole 20 mg PO QAM 30 days sacubitril-valsartan 97-103 mg (Entresto) 1 tab PO BID spironolactone 25 mg PO DAILY zolpidem 5 mg PO TID PRN HPI HPI Comments History of Present Illness Details A 43 y/o male f/u after EGD and colonoscopy- tolerated procedures well Discussed procedure report, path and recommendation Opportunity for questions answered to his satisfaction He was taking omeprazole for acid-he d/cd due to causing abd. pain He has a nausea, vomiting hematemesis, hematochezia fever chills PFSH Medical History (Updated 12/06/23 @ 14:00 by Saima Lewis PA-C) Type 2 diabetes mellitus Nonischemic cardiomyopathy Surgical History History of esophagogastroduodenoscopy (EGD) History of colonoscopy Hx of vasectomy History of surgery History of adenoidectomy History of carpal tunnel release Hx of thyroidectomy S/P cervical disc replacement H/O nephrolithotomy with removal of calculi Family History Father CAD (coronary artery disease) Mother No problems noted. 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 Review of Systems Const All systems reviewed & are unremarkable except as noted in HPI and below Reports malaise Card Denies chest pain and Denies dyspnea Resp Denies dyspnea GI Denies abdominal pain, Denies hematochezia, Denies change in bowel habits, Reports heartburn, Denies nausea and Denies vomiting Physical Exam Vital Signs: Last Vital Signs Pulse 90 12/06/23 11:24 BP 119/72 12/06/23 11:24 BMI result Body Mass Index 36.0 Const General: cooperative, healthy appearing, comfortable and no acute distress Orientation/consciousness: patient oriented x3 Limitations: no limitations Resp Effort & Inspection: normal respiratory effort and able to speak in complete sentences Neuro General: patient oriented x3 Extrem General: Yes full ROM Psych Appearance: grossly normal and well kempt Mental Status: mental status grossly normal Speech and movement: Normal speech and movement present Affect: normal affect Attitude: cooperative Thought process: Normal thought process present Thought content: Normal thought content present Results Reviewed Results Reviewed: Findings: Larynx: Normal Esophagus: GE junction at 40 cms. A 1 cms tongue of suspected May's - biopsied. LA grade 1 esophagitis with focal erosion at GE junction.. Stomach: Multiple 8 to 12 mm benign appearing polyps in the gastric body and antrum. Antral polyp was biopsied. Mild gastric erythema. Antral biopsies were obtained to check for Helicobacter pylori. Grade 2 flap valve on retroflexed examination of the cardia. Duodenum: Normal bulb and descending duodenum Intervention: Biopsies as noted above Impression and Post Procedure Diagnosis: Colonoscopy Findings: Seven small to medium sized and two large polyps removed Multiple 8 to 12 mm sessile polyps throughout the entire colon - not removed due to excessive length of the procedure Moderate diverticulosis seen in the left colon Moderate hemorrhoids on retroflexed exam. Endoscopy Findings: ESOPHAGUS: A 1 cms tongue of suspected May's - biopsied. LA grade 1 esophagitis with focal erosion at GE junction.. STOMACH: Multiple 8 to 12 mm benign appearing polyps in the gastric body and antrum. Antral polyp was biopsied. Mild gastric erythema. Antral biopsies were obtained to check for Helicobacter pylori. Plan: Patient has an appointment on 11/07/23 in the [facility] with PRINCE Weiss. Repeat Colonoscopy interval based on path results - in 6 months if polyps are adenomatous and for removal of remaining polyps (Needs 90 min appt and adult colonoscope for next colonoscopy). Above findings were reviewed with the patient and colon polyps and diverticulosis handouts were given in the discharge area BIOPSIES SHOWED: A. Colon, cecal polyp: Inflammatory polyp; negative for adenomatous dysplasia. B. Colon, transverse, polyps: Inflammatory polyps; negative for adenomatous dysplasia. C. Colon, sigmoid at 40 cm, polyp: Inflammatory polyp with reactive mucosal changes; negative for adenomatous dysplasia. D. Colon, sigmoid at 35 cm, polyp: Tubulovillous adenoma, likely excised; negative for high-grade dysplasia and carcinoma. E. Gastric antrum, biopsy: Gastric antral mucosa with congestion and minimal chronic inactive gastritis; negative for H pylori, intestinal metaplasia and dysplasia. F. Gastric polyp, biopsy: Polypoid gastric antral mucosa with congestion and focal minimal chronic inactive inflammation; negative for H pylori, intestinal metaplasia and dysplasia. G. Gastroesophageal junction, biopsy: Columnar mucosa with congestion and minimal chronic inactive inflammation; negative for intestinal metaplasia and dysplasia; no squamous mucosa present. Comment: (B and C): Focal lamina propria ganglion cells are noted, consistent with mucosal damage Assessment & Plan Assessment & Plan (1) History of adenomatous polyp of colon: Comment: Multiple colon polyps Code(s): Z86.010 - Personal history of colonic polyps (2) Fundic gland polyps of stomach, benign: Code(s): D13.1 - Benign neoplasm of stomach (3) Tubulovillous adenoma: Code(s): D36.9 - Benign neoplasm, unspecified site Plan: Repeat colonoscopy 6 months (4) Acid reflux: Comment: Trials of PPI, however culprits likely cause tobacco and overweight Code(s): K21.9 - Gastro-esophageal reflux disease without esophagitis Plan: Try pantoprazole 20 mg daily Plan (04/27)Reschedule repeat colonoscopy to a Tuesday Medications: New pantoprazole 20 mg PO QAM 30 days 30 tabs 6RF Patient Instructions: AFDR- begin screening at age 30- Colonoscopy repeat-6 months,-already scheduled Prep sent to pharmacy Reflux precautions reviewed Pantoprazole 20 mg daily-hopefully gets better coverage Encouraged to call with any questions or concerns or changes in health status Coding Level of Care Code Est Pt Level 3 (42301) Diagnoses History of adenomatous polyp of colon Z86.010 Fundic gland polyps of stomach, benign D13.1 Tubulovillous adenoma D36.9 Acid reflux K21.9 Time Spent (min) 25
[2023-12-06 11:24] VITALS: BP 119/72; PULSE 90; BMI 36.0
== END 2023-12-06 12:05 | disposition home or self-care (01) ==
PROVIDERS: PCP Internal Medicine; Visit Provider Physician Assistant
DX: K63.5 Polyp of colon (principal); K31.7 Polyp of stomach and duodenum; K21.9 Gastro-esophageal reflux disease without esophagitis
CPT/HCPCS: 99213

== ENCOUNTER → 2023-12-06 11:11 | Outpatient (BNVA) | payer OTHER, SELFPAY | PROVIDERS: PCP Internal Medicine; Visit Provider Physician Assistant | DX: D13.1 Benign neoplasm of stomach (principal); D36.9 Benign neoplasm, unspecified site; K21.9 Gastro-esophageal reflux disease without esophagitis; Z86.010 Personal history of colon polyps | CPT/HCPCS: 99212 ==

== ENCOUNTER → 2023-12-13 10:52 | Outpatient (REF) | payer OTHER, SELFPAY ==
--- NOTE | 2023-12-13 10:56 | CA_ITS ---
Transthoracic Echocardiogram Patient (Last, First, Middle): Martín Del Valle, Gender: Male Date of : 1980 Age: 43 Procedure Date: 12/13/2023 Procedure Type: Transthoracic Echocardiogram Location: OP Height: 175.26 cm Weight: 111.13 kg BSA: 2.25 m2 Heart Rate: bpm BP: 110 / 74 mmHg Tableau Developer: TO Referring MD: Hadley Guallpa MD Symptoms: I42.8 - Other cardiomyopathies Study Quality: Fair/Contrast Conclusions: - The left ventricular systolic function is severely decreased. The visually estimated ejection fraction is between 25-30%. - No obvious valvular pathology seen on this study. Findings Procedure Information Contrast agent, definity, is being given per protocol without apparent complications. Left Ventricle Moderately increased left ventricular cavity size. There is normal left ventricular wall thickness. The left ventricular systolic function is severely decreased. The visually estimated ejection fraction is between 25 30%. There is severe global hypokinesis. Evidence suggests grade I (mild) diastolic dysfunction. Right Ventricle Normal right ventricular cavity size. There is low normal right ventricular systolic function. Atria Both atria are normal in size. Aortic Valve There is a normal trileaflet aortic valve. There is no aortic valve stenosis. There is no aortic valve regurgitation. Mitral Valve The mitral valve appears normal. There is no mitral valve regurgitation. There is no mitral valve stenosis. Pulmonic Valve The pulmonic valve is likely normal. Tricuspid Valve Normal tricuspid valve structure. There is trace tricuspid valve regurgitation. There is no evidence of pulmonary hypertension. Great Vessels The asc aorta and aortic arch are normal in size. Venous The inferior vena cava was not well visualized. The inferior vena cava is normal in size. Pericardium/Pleural There is no evidence of pericardial effusion. Prior Study Comparison Changes noted compared to prior study dated: 11/17/2022. LVEF lower than previously reported; visually similar. Recommendations, Care & Conclusions No obvious valvular pathology seen on this study. Measurements 2D Linear Measurements IVSd: 0.76 0.6-0.9/0.6-1.0 cm LVIDd: 6.39 3.9-5.3/4.2-5.9 cm LVIDd Index: 2.84 2.4-3.2/2.2-3.1 cm/m2 LVIDs: 5.23 2.0-3.6 cm LVPWd: 0.86 0.7-1.1 cm LA Diam: 4.00 2.7-3.8/3.0-4.0 cm LAIDs Index: 1.78 1.5-2.3 cm/m2 LV Mass: 263.13 67-162/88-224 g LV Mass Index: 116.94 43-95/49-115 g/m2 LVOT Diam: 2.70 3.0+(-)1.3 cm 2D Systolic Function EF 4C: 28.30 >55% EF 2C: 35.50 >55% EF BiP: 32.00 >55% Mitral Valve MV Pk E: 0.66 MV PK A: 0.69 MV Decel Time: 119.00 E/A: 1.00 E'Lateral: 6.42 E'Medial: 4.57 E/E' Med: 14.50 E/E' Lat: 10.30 PHT: 35.00 MVA PHT: 6.29 Decel [place]: 5.58 Aortic Valve AoV Pk Mode: 1.15 AoV Mn Mode: 0.86 AoV VTI: 0.21 AoV Pk Grad: 5.00 Aov Mn Grad: 3.00 IVANA Cont.VTI: 3.05 LVOT LVOT Pk Mode: 0.59 LVOT Mn Mode: 0.41 LVOT VTI: 0.11 LVOT Pk Grad: 1.00 LVOT Mn Grad: 1.00 LVOT Diam: 2.70 LVOT Area: 5.73 Diastolic Function MV Pk E: 0.66 MV Pk A: 0.69 E/A: 1.00 E'Medial: 4.57 E/E' Med: 14.50 E' Laterial: 6.42 E/E' Lat: 10.30 Right Ventricle TAPSE (mm): 18.00 TVS' Mode: 10.80 Tricuspid Valve RA Press: 3.00 Great Vessels Aorta Sinus of Valsalva: 3.63 2.0-3.5 cm Ao Asc: 3.10 2.1-3.4 cm Ao Arch: 3.00 Updated in Other Vendor System with Status of Final De Flores MD electronically signed on 12/14/2023 12:41:12 PM with status of Final
== END ==
LOC: HO.CARD 10:52
PROVIDERS: PCP Internal Medicine; Visit Provider Internal Medicine Cardiovascular Disease
DX: I42.8 Other cardiomyopathies (principal)
CPT/HCPCS: 93306; Q9957

== ENCOUNTER → 2023-12-13 10:56 | Outpatient (BNV) | payer OTHER, SELFPAY | PROVIDERS: PCP Internal Medicine; Visit Provider Internal Medicine | DX: I42.8 Other cardiomyopathies (principal) | CPT/HCPCS: 93306 ==

== ENCOUNTER 2023-12-20 13:40 | Outpatient (REF) | payer OTHER, SELFPAY ==
[2023-12-20 15:04] LABS: Anion Gap 13 (12-20); Blood Urea Nitrogen 19 mg/dL (9-16); Calcium 9.5 mg/dL (8.4-10.2); Carbon Dioxide 27 mmol/L (22-29); Chloride 102 mmol/L (96-108); Estimated Glomerular Filt Rate > 60; Glucose Random 205 mg/dL (60-115); Potassium 4.2 mmol/L (3.3-5.1); Sodium 138 mmol/L (135-145)
== END 2023-12-20 13:41 | disposition home or self-care (01) ==
LOC: HO.LAB 13:40
PROVIDERS: PCP Internal Medicine; Visit Provider Internal Medicine Cardiovascular Disease
DX: I42.8 Other cardiomyopathies (principal)
CPT/HCPCS: 36415; 80048

== ENCOUNTER 2024-01-03 09:25 | Outpatient (AMB) | payer OTHER, SELFPAY ==
[2024-01-03 09:33] VITALS: BP 130/88; PULSE 62; BMI 37.4
--- NOTE | 2024-01-03 09:33 | A.OFFVIS_ITS ---
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 Allergies acetaminophen [From Vicodin] Allergy (Unknown, Verified 12/06/23 11:19) Nightmares buprenorphine [From Suboxone] Allergy (Unknown, Verified 12/06/23 11:19) Vomiting cephalexin Allergy (Unknown, Verified 12/06/23 11:19) Vomiting escitalopram [From Lexapro] Allergy (Unknown, Verified 12/06/23 11:19) headaches hydrocodone [From Vicodin] Allergy (Unknown, Verified 12/06/23 11:19) Nightmares ketorolac [From Toradol] Allergy (Unknown, Verified 12/06/23 11:19) Vomiting metformin Allergy (Unknown, Verified 12/06/23 11:19) GI Problems naloxone [From Suboxone] Allergy (Unknown, Verified 12/06/23 11:19) Vomiting pregabalin [From Lyrica] Allergy (Unknown, Verified 12/06/23 11:19) Anxiety shrimp Allergy (Unknown, Verified 12/06/23 11:19) Anaphylaxis tramadol Allergy (Unknown, Verified 12/06/23 11:19) Anxiety Chantix Allergy (Mild, Uncoded 04/28/23 12:24) Anxiety Gabapentin Allergy (Mild, Uncoded 04/28/23 12:24) Anxiety Morphine Allergy (Mild, Uncoded 04/28/23 12:24) Anxiety Neurontin Allergy (Mild, Uncoded 04/28/23 12:24) Anxiety heavy metals Allergy (Unknown, Uncoded 04/28/23 12:24) Rash Medication List - Last Reconciled 01/03/24 by Hadley Guallpa MD blood sugar diagnostic (Accu-Chek Guide test strips) As directed blood-glucose meter (Accu-Chek Guide Me Glucose Meter) As directed carvedilol (Coreg) 25 mg PO BID lancets (FreeStyle Lancets) As directed levothyroxine 112 mcg PO DAILY methylphenidate HCl 10 mg PO DAILY pantoprazole 20 mg PO QAM 30 days sacubitril-valsartan 97-103 mg (Entresto) 1 tab PO BID spironolactone 25 mg PO DAILY zolpidem 5 mg PO TID PRN HPI Comments Details: Martín comes for follow-up. He continues to have symptoms of fatigue. NYHA class 2. No worsening shortness of breath, orthopnea, PND, leg edema. Taking all his medications. Denies any lightheadedness, syncope. Can not measure blood pressure at home. 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 No prolonged palpitations irregular heartbeat. No issues with taking his medications. Recent echocardiogram shows worsening of his LV EF to 25-30%, similar to in the past. [facility] Medical History Type 2 diabetes mellitus Nonischemic cardiomyopathy Surgical History History of esophagogastroduodenoscopy (EGD) History of colonoscopy Hx of vasectomy History of surgery History of adenoidectomy History of carpal tunnel release Hx of thyroidectomy S/P cervical disc replacement H/O nephrolithotomy with removal of calculi Family History Father CAD (coronary artery disease) Mother No problems noted. 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 Review of Systems Const Denies chills, Denies fatigue, Denies fever(s), Denies frequent falls, Denies weakness, Denies weight gain and Denies weight loss ENT Denies dizziness Card Denies chest pain, Denies leg edema, Denies lightheadedness, Denies palpitation s, Denies dyspnea, Denies dyspnea on exertion, Denies orthopnea and Denies other (loss of consciousness) Resp Denies cough, Denies dyspnea and Denies dyspnea on exertion GI Denies hematochezia and Denies change in stool character Musc Denies abnormal gait, Denies muscle weakness, Denies numbness, Denies radiating pain into limb and Denies tingling Neuro Denies abnormal gait, Denies dizziness, Denies frequent falls, Denies numbness, Denies tingling and Denies weakness Endo Denies fatigue and Denies palpitations Physical Exam Vital Signs: Last Vital Signs Pulse 62 01/03/24 09:33 BP 130/88 01/03/24 09:33 BMI result Body Mass Index 37.4 Const General: cooperative, comfortable, no acute distress, alert, awake and Physically active Nutritional Appearance: obese Orientation/consciousness: patient oriented x3 Limitations: no limitations Neck Neck: Yes trachea midline, Yes supple and Yes no JVD Resp Effort & Inspection: normal respiratory effort Auscultation: clear to auscultation bilaterally Cardio Jugular venous distension: no JVD Palpation: abnormal PMI displaced PMI Rate: regular rate Rhythm: regular rhythm Heart sounds: S1 normal heart sound present, S2 normal heart sound present, no click, no gallops, no murmurs and no rubs Neuro General: patient oriented x3 and no focal motor deficits Extrem General: Yes no clubbing, cyanosis or edema Psych Appearance: grossly normal Office Procedures EKG Details: EKG shows normal sinus rhythm with frequent PVCs with nonspecific T-wave changes [id number], Complete Assessment & Plan Assessment & Plan (1) Nonischemic cardiomyopathy: Code(s): I42.8 - Other cardiomyopathies Category: Medical Plan: Nonischemic cardiomyopathy with further worsening in LV ejection fraction to 25- 30% despite guideline based medical therapy. He does not have any signs of congestion of fluid overload. Currently not on any diuretic regimen but continues to have NYHA class 2 symptoms with symptoms of fatigue. His blood pressure is slightly elevated. I would further uptitrate his spironolactone to 50 mg daily. Advised to monitor blood pressure at home although he says he does not have any methodology of doing that. Check BMP in 1 week. Given his severe LV systolic dysfunction NYHA class 2 symptoms, candidate for defibrillator placement. Given that he does not have any left bundle-branch block morphology would benefit from primary prevention device and could be a candidate for subcutaneous ICD given his age. Will discuss this with EPS. Will follow up in the clinic after defibrillator placement. Medications: New spironolactone 50 mg PO DAILY 30 tabs 5RF Discontinued spironolactone Discontinued Reason: Doctor's Order 25 mg PO DAILY 90 tabs 3RF Coding Level of Care Code Est Pt Level 4 (23275) Diagnoses Nonischemic cardiomyopathy I42.8 CPT Codes EKG - CPT: 94813-[id number], Complete ([id number])
== END 2024-01-03 10:08 | disposition home or self-care (01) ==
PROVIDERS: PCP Internal Medicine; Visit Provider Internal Medicine Cardiovascular Disease
DX: I42.8 Other cardiomyopathies (principal)
CPT/HCPCS: 93010; 99214

== ENCOUNTER → 2024-01-03 09:25 | Outpatient (BNVA) | payer OTHER, SELFPAY | PROVIDERS: PCP Internal Medicine; Visit Provider Internal Medicine Cardiovascular Disease | DX: I42.8 Other cardiomyopathies (principal) | CPT/HCPCS: 93005; 99212 ==